=== PATIENT | female | born 1970 | race Caucasian/White ===

== ENCOUNTER 2016-03-07 17:31 | Emergency (ER) | payer OTHER ==
[2016-03-07 18:14] VITALS: BP 138/51; PULSE 89; RESP 16; TEMP 98.2; O2SAT 95
--- NOTE | 2016-03-07 18:28 | UCPHY ---
[id number] CHIEF COMPLAINT: Runny nose, sinus pressure HPI: The patient is a 46-year-old female with no significant past medical history. She has no history of diabetes or sinus surgery. She reports several days of cough as well as rhinorrhea. No fever. She has developed pressure and pain sensation over her right maxillary sinus as well as some fullness and pain to the ear. No rash on face. He has been taking [id number] medications without significant relief. REVIEW OF SYSTEMS: Aside from elements discussed in the HPI, a comprehensive 10-point review of systems was reviewed and is negative. PMH: None significant. SOCIAL HISTORY: Denies alcohol or drug abuse. FAMILY HISTORY: Reviewed, noncontributory PHYSICAL EXAM: General:Patient is alert, in no acute distress. ENT:Eyes are normal to inspection. TMs normal bilaterally. Mild tenderness to palpation over the right maxillary sinus is present. Neck: Normal inspection. Full range of motion. Respiratory:No respiratory distress. Breath sounds normal bilaterally. Cardiovascular: Regular rate and rhythm. Strong peripheral pulses. Normal cap refill. Neuro: Oriented x3. Normal motor function. Normal sensory function. Smoking Status: Never smoked Constitutional: Initial Vital Signs Temperature (C) 36.8 C 03/07/16 18:10 Heart Rate 89 03/07/16 18:10 Respiratory Rate 16 03/07/16 18:10 Blood Pressure 138/51 H 03/07/16 18:10 O2 Sat (%) 95 03/07/16 18:10 O2 Delivery Mode Room Air Allergies/Adverse Reactions: erythromycin base [Erythromycin Base] Allergy (Verified 03/07/16 18:10) Penicillins Allergy (Verified 03/07/16 18:10) Sulfa (Sulfonamide Antibiotics) Allergy (Verified 03/07/16 18:10) Home Medications: Medication Instructions Recorded Miscellaneous Medical Supply [NO 1 ea MISC AD 04/08/11 HOME MEDS] Fluticasone Nasal [Flonase Nasal 2 sprays NASAL DAILY #1 mdi 03/07/16 [place]] HYDROcodone/HOMATROPINE HYCODA 1 tsp PO Q4-6PRN PRN #120 ml 03/07/16 [Hycodan Syrup (RX)] Moxifloxacin [Avelox 400 mg (*)] 400 mg PO DAILY #7 tab 03/07/16 Medical Decision Making ED Course/Re-evaluation: This patient presents with what appears to be acute sinusitis in the setting of an upper respiratory infection. I had extensive discussion with her regarding treatment options and she requests antibiotics. She has extensive allergies to antibiotics so I have settled on floor quinolone. I see no evidence of shingles , abscess, tumor or stroke. Patient is comfortable with plan for outpatient therapy. Departure - Departure Disposition: Home, Routine, Self-Care Clinical Impression: Sinusitis, Upper respiratory infection Instructions: Sinusitis (ED) Additional Instructions: Use [id number] nasal decongestant as directed. Follow-up with your primary doctor within 72 hours. Return to the Emergency Department for fever, chest pain, shortness of breath, increasing pain or other worsening of condition. Referrals: Queenie Mckoy MD [Primary Care Provider] - As per Instructions Prescriptions: Moxifloxacin [Avelox 400 mg (*)] 400 mg PO DAILY #7 tab Fluticasone Nasal [Flonase Nasal [place]] 2 sprays NASAL DAILY #1 mdi HYDROcodone/HOMATROPINE HYCODA [Hycodan Syrup (RX)] 1 tsp PO Q4-6PRN PRN #120 ml PRN Reason: Cough, Severe - PQRS PQRS Measurement: 134: Depression screening and followup, PRIME MD-PHQ2 (12 years and older) Over the last 2 weeks, how often have you been bothered by any of the following problems? 1. Feeling down, depressed, or hopeless? 2. Little interest or pleasure in doing things? Patient answered no to both 1 and 2 130: Documentation of medications. Reviewed all patient medications, doses, route and frequency. 226: Do you smoke? No. 51: 18 years old and older with diagnosis of COPD, spirometry performance. Spirometry not performed; equipment not available. Patient has no history of COPD 52: 18 years old and older with COPD and symptoms of COPD or FEV1<60% predicted prescribed a B Agonist. Spirometry not performed; equipment not available.
== END 2016-03-07 18:56 | disposition home or self-care (01) ==
LOC: CED 17:31
DX: J06.9 Acute upper respiratory infection, unspecified (principal); J01.90 Acute sinusitis, unspecified
CPT/HCPCS: 99214-PO; G0463-PO

== ENCOUNTER → 2016-12-20 | Outpatient (CLI) | payer OTHER | LOC: FIMAGING 13:36 | PROVIDERS: ATTEND Obstetrics & Gynecology Gynecology | DX: Z12.31 Encounter for screening mammogram for malignant neoplasm of breast (principal) | CPT/HCPCS: G0202 ==

== ENCOUNTER → 2017-08-22 | Outpatient (CLI) | payer OTHER | LOC: CIMAGING 07:19 | PROVIDERS: ATTEND Registered Nurse | DX: R10.10 Upper abdominal pain, unspecified (principal) | CPT/HCPCS: 76700-PO ==

== ENCOUNTER 2017-12-19 09:10 | Emergency (ER) | payer OTHER ==
--- NOTE | 2017-12-19 09:20 | EDPHY ---
H & P Stated Complaint: Initial low back inj x 2wks [employer], sneezed yest reinjury, denies paresthesias - Personal History Current Tetanus/Diphtheria Vaccine: Yes - Medical/Surgical History Hx Asthma: No Hx Chronic Respiratory Disease: No Hx Diabetes: No Hx Cardiac Disease: No Hx Renal Disease: No Hx Cirrhosis: No Hx Alcoholism: No Hx HIV/AIDS: No Hx Splenectomy or Spleen Trauma: No Other PMH: PCP Leelee Weiss Int med. Surg APPY , TONSIls ,ortho . FLU vacc UTD . Tetanus UTD - Social History Smoking Status: Never smoked Time Seen by Provider: 12/19/17 09:19 HPI/ROS: CHIEF COMPLAINT: Acute low back pain HISTORY OF PRESENT ILLNESS: 47-year-old female drove to the ER complaining of acute low back pain since yesterday. Few days ago she was pulling weeds from her yd and noticed mild right paraspinous low back pain. Yesterday she had 6 consecutive sneezes and this subsequently triggered spasm in same location. She has limited range of motion secondary to pain in the right paraspinous lumbar region. No incontinence , no retention. No saddle anesthesia. No radiculopathy. No lower extremity pain, paresthesia. No direct trauma or fall. No abdominal pain. No fever no chills. No flu-like symptoms. No history of chronic back pain. PRIMARY CARE PROVIDER:Dr. Queenie Mckoy REVIEW OF SYSTEMS: A ten point review of systems was performed and is negative with the exception of the items mentioned in the HPI PAST MEDICAL & SURGICAL HISTORY: No pertinent medical or surgical history SOCIAL HISTORY: Nonsmoker no drug use. PHYSICAL EXAM (Prior to examination, patient consented to physical exam, hands were washed and my usual and customary physical exam procedures followed) 1) GENERAL: [Well-developed, well-nourished, alert and oriented. Appears nontoxic answering questions appropriately. Observed ambulating with a slow gait 2) HEAD: Normocephalic, atraumatic 3) HEENT: Pupils equal, round, reactive to light bilaterally. Sclera anicteric. Nasopharynx, oropharynx, clear, no lesions. 4) NECK: Full range of motion, no meningeal signs. 5) LUNGS: Clear auscultation bilaterally, no wheezes, no rhonchi, no retractions. 6) HEART: Regular rate and rhythm, no murmur, no heave, no gallop. 7) ABDOMEN: No guarding, no rebound, no focal tenderness, negative McBurney's, negative Green's, negative Rovsing's, negative peritoneal sign, 8) MUSCULOSKELETAL: Moving all extremities, no focal areas of tenderness, no obvious trauma. No peripheral edema or discoloration. 9) BACK: tender to palpation right paraspinous lumbar muscle. Positive straight leg lift test on the right. No CVA tenderness, no midline vertebral tenderness, no fluctuance, no step-off, no obvious trauma, no visual or palpable abnormality. Patella, Achilles reflexes intact to bilateral strength 5 /5 10) SKIN: No rash, no petechiae. 11) NEURO: Awake, alert, and oriented to person, place and time. Answers questions appropriately. There were no obvious focal neurologic abnormalities. No cerebellar dysfunction. Upper and lower extremities bilaterally with strength 5 / 5, reflexes 2+.. DIFFERENTIAL DIAGNOSIS: In no particular order, including but not limited to, fracture, sprain/strain, cauda equina, spinal infectious etiology. MEDICAL DECISION MAKING Lower index of suspicion for cauda equina, epidural abscess, epidural hematoma, lumbar myositis, diskitis, as the patient is neurologically intact in the lower extremities, has patella and Achilles reflexes intact and equal bilaterally, has no neurologic deficits, no incontinence, no retention, no midline pain, no fluctuance, afebrile, no flulike symptoms. Pain may be secondary to muscular strain, may be secondary to discogenic etiology. At this point I do not identify definitive indication for emergent MRI, however patient may necessitate this on an outpatient basis. She did consent to trigger-point injection, see procedure note, which provided localized relief. I think the patient can be discharged follow up with her PCP. Given prescription for Medrol Dosepak, Flexeril, Lidoderm patches. The patient had a listed opioid allergy which I discussed with her and she notes no allergy to opioids. Patient given acute back pain precautions. Patient verbalizes understanding of discharge instructions. I believe them be competent decision-makers. All questions and concerns have been addressed by me. Ample opportunity for questions have been provided . The patient understands that this diagnosis is provisional and can never be 100% accurate. Usual and customary warnings were given concerning the clinical impression and all the patient's questions were answered. The patient was instructed to return to the emergency department should her symptoms worsen or return, or develop any new symptoms, otherwise to followup as directed in discharge instructions. (Felicia Callaway) Constitutional: Initial Vital Signs Temperature (C) 36.7 C 12/19/17 09:15 Heart Rate 75 12/19/17 09:15 Respiratory Rate 18 12/19/17 09:15 Blood Pressure 148/92 H 12/19/17 09:15 O2 Sat (%) 95 12/19/17 09:15 O2 Delivery Mode Room Air Allergies/Adverse Reactions: erythromycin base [Erythromycin Base] Allergy (Verified 12/19/17 09:15) Penicillins Allergy (Verified 12/19/17 09:15) Sulfa (Sulfonamide Antibiotics) Allergy (Verified 12/19/17 09:15) Home Medications: Medication Instructions Recorded Miscellaneous Medical Supply [NO 1 ea MISC AD 04/08/11 HOME MEDS] Fluticasone Nasal [Flonase Nasal 2 sprays NASAL DAILY #1 mdi 03/07/16 [place]] HYDROcodone/HOMATROPINE HYCODA 1 tsp PO Q4-6PRN PRN #120 ml 03/07/16 [Hycodan Syrup (RX)] Moxifloxacin [Avelox 400 mg (*)] 400 mg PO DAILY #7 tab 03/07/16 Cyclobenzaprine [Flexeril 10 MG 10 mg PO TID #15 tab 12/19/17 (RX)] Lidocaine [Lidoderm] 1 each TP BID #30 adh..patch 12/19/17 methylPREDNISolone [Medrol Dose 4 mg PO DAILY #1 ea 12/19/17 [place]] Medical Decision Making Procedures: Procedure: Trigger point injection Indications: Focal tenderness at the right paraspinous lumbar region Indications risks benefits discussed with patient. Using Solu-Medrol and 0.5% plain bupivacaine on a 27 gauge needle that was introduced into the muscle, multiple injections were fanned using my usual customary technique pain careful attention to anatomic structures. Patient tolerated procedure well. (Felicia Callaway) ED Course/Re-evaluation: I did not see this patient while she was in the emergency department. However her care was discussed with the PA while the patient was in the department. I agree with treatment plan and management (Dayton Garcia) - Data Points Medications Given: Discontinued Medications Methylprednisolone Sodium Succinate (Solu-Medrol) 125 mg IVP EDNOW ONE Stop: 12/19/17 09:29 Last Admin: 12/19/17 09:40 Dose: 125 mg Departure - Departure Disposition: Home, Routine, Self-Care Clinical Impression: Low back pain Condition: Good Instructions: Low Back Strain (ED) Additional Instructions: Seek medical attention if you develop new or worsening pain, if you develop bladder or bowel dysfunction, numbness around your perineum, foot drop, or any other symptoms that concern you. Referrals: Queenie Mckoy MD [Primary Care Provider] - 2-3 days, call for appt. Prescriptions: Cyclobenzaprine [Flexeril 10 MG (RX)] 10 mg PO TID #15 tab Lidocaine [Lidoderm] 1 each TP BID #30 adh..patch methylPREDNISolone [Medrol Dose [place]] 4 mg PO DAILY #1 ea
[2017-12-19] MEDS ORDERED: methylPREDNISolone SOD SUCC 125 MG/2 ML VIAL IVP ONE (09:28)
[2017-12-19] MEDS ORDERED: methylPREDNISolone SOD SUCC 125 MG/2 ML VIAL ONE (09:30)
[2017-12-19 10:01] VITALS: BP 127/62
== END 2017-12-19 10:00 | disposition home or self-care (01) ==
PROC: 3E023GC Introduction of Other Therapeutic Substance into Muscle, Percutaneous Approach (ICD-10-PCS; principal; 2017-12-19)
DX: M54.5 Low back pain (principal); X50.1XXA Overexertion from prolonged static or awkward postures, initial encounter; Y93.H2 Activity, gardening and landscaping; Y92.017 Garden or yard in single-family (private) house as the place of occurrence of the external cause
CPT/HCPCS: J2930

== ENCOUNTER → 2017-12-22 | Outpatient (CLI) | payer OTHER | LOC: FIMAGING 15:12 | PROVIDERS: ATTEND Internal Medicine Geriatric Medicine | DX: Z12.31 Encounter for screening mammogram for malignant neoplasm of breast (principal) ==